=== PATIENT | male | born 1965 | race Caucasian/White ===

== ENCOUNTER 2017-12-16 13:38 | Day surgery (SDC) | payer BC, OTHER ==
[2017-12-13 17:46] VITALS: BMI 31.6
[2017-12-16 14:05] VITALS: TEMP 98.3
[2017-12-16] MEDS ORDERED: MIDAZOLAM HCL 2 MG/2 ML SINGLE DOSE VIAL ONE ×3 (17:09→17:26)
[2017-12-16] MEDS ORDERED: DEXAMETHASONE SOD PHOSPHATE 4 MG/1 ML VIAL ONE (17:39)
--- NOTE | 2017-12-16 17:54 | OP ---
Operative Note - Note: Operative Date: 12/16/17 Pre-Operative Diagnosis: Left renal stone Operation: Lefdr renal ESWL Findings: 7 mm Left kidney lower pole stone Post-Operative Diagnosis: Same as Pre-op Surgeon: Kevin Kline Anesthesia: Fractional Estimated Blood Loss (mls): 0
[2017-12-16 19:21] VITALS: BP 130/80; PULSE 58
--- NOTE | 2017-12-16 22:23 | OP ---
DATE OF OPERATION: 12/16/2017 PREOPERATIVE DIAGNOSIS: Left renal stone. POSTOPERATIVE DIAGNOSIS: Left renal stone. PROCEDURE: Left extracorporeal shock wave lithotripsy. ATTENDING: Lilli Walker MD ANESTHESIA: Fractional. DESCRIPTION OF OPERATION: The patient was brought in the operating room and placed in supine position on the operating room table. Ultrasonography and fluoroscopy were performed. A 7-mm left lower pole stone was identified. Anesthesia and preoperative antibiotics were then administered. Shock wave lithotripsy was performed; 2500 impulses at 17 joules of power were administered to the stone with excellent fragmentation noted under real-time ultrasonography and fluoroscopy. There were no complications noted. The patient tolerated the procedure very well. LILLI WALKER M.D. [id number]
== END 2017-12-16 18:00 | disposition home or self-care (01) ==
LOC: JASU-SURG 13:38
PROVIDERS: ATTEND Urology
PROC: 0TF4XZZ Fragmentation in Left Kidney Pelvis, External Approach (ICD-10-PCS; principal; 2017-12-16 16:15)
DX: N20.0 Calculus of kidney (principal)

== ENCOUNTER 2018-01-27 07:47 | Day surgery (SDC) | payer BC, OTHER ==
[2018-01-24 09:18] VITALS: BMI 31.6
[2018-01-27] MEDS ORDERED: PROPOFOL 20 ML ONE (09:52)
[2018-01-27] MEDS ORDERED: MIDAZOLAM HCL 2 MG/2 ML SINGLE DOSE VIAL ONE (09:53)
[2018-01-27] MEDS ORDERED: LIDOCAINE HCL/PF 2% SDV 5ML VIAL ONE (09:54)
[2018-01-27] MEDS ORDERED: KETOROLAC TROMETHAMINE 30 MG/1 ML VIAL ONE (10:38)
--- NOTE | 2018-01-27 10:45 | OP ---
Operative Note - Note: Operative Date: 01/27/18 Pre-Operative Diagnosis: Right Kidney stone Operation: Right ESWL Findings: 4 mm mid & 4 mm lower pole Right renal stone Post-Operative Diagnosis: Same as Pre-op Anesthesia: Fractional Estimated Blood Loss (mls): 0
[2018-01-27 12:53] VITALS: BP 119/50; PULSE 65; TEMP 97.2
--- NOTE | 2018-01-27 20:43 | OP ---
DATE OF OPERATION: 01/27/2018 PREOPERATIVE DIAGNOSIS: Right renal stone. POSTOPERATIVE DIAGNOSIS: Right renal stone. PROCEDURE: Right extracorporeal shockwave lithotripsy. ATTENDING: Lilli Kline M.D. ANESTHESIA: Fractional. DESCRIPTION OF PROCEDURE: Patient was brought in the operating room, placed in a supine position on the operating room table. Ultrasonography and fluoroscopy were performed. Two stones each measuring 4 mm were noted in the right mid and right lower poles. Anesthesia was then administered as well as preoperative antibiotics. 1500 impulses at 18 joules of power were administered to each stone. Excellent fragmentation was noted. No complications were noted. DISPOSITION: To recovery room. LILLI WALKER M.D. [id number]
== END 2018-01-27 12:25 | disposition home or self-care (01) ==
LOC: JASU-SURG 07:47
PROVIDERS: ATTEND Urology
PROC: 0TF3XZZ Fragmentation in Right Kidney Pelvis, External Approach (ICD-10-PCS; principal; 2018-01-27 09:30)
DX: N20.0 Calculus of kidney (principal)

== ENCOUNTER 2019-11-16 05:14 | Day surgery (SDC) | payer BC, OTHER ==
[2019-11-12 10:22] VITALS: BMI 28.3
[2019-11-16] MEDS ORDERED: MIDAZOLAM HCL 2 MG/2 ML SINGLE DOSE VIAL ONE (09:59)
--- NOTE | 2019-11-16 11:10 | OP ---
Operative Note - Note: Operative Date: 11/16/19 Pre-Operative Diagnosis: Left renal stone Operation: ESWL Findings: 6 mm lower pole left renal stone Post-Operative Diagnosis: Same as Pre-op Surgeon: Kevin Kline Anesthesia: Regional Estimated Blood Loss (mls): 0 Operative Report Dictated: Yes
[2019-11-16 12:29] VITALS: BP 131/76; PULSE 65; TEMP 97.5
--- NOTE | 2019-11-16 20:33 | OP ---
DATE OF OPERATION: 11/16/2019 PREOPERATIVE DIAGNOSIS: Left renal stone. POSTOPERATIVE DIAGNOSIS: Left renal stone. PROCEDURE: Left extracorporeal shockwave lithotripsy. ATTENDING: Lilli Kline M.D. ANESTHESIA: Fractional. DESCRIPTION OF PROCEDURE: Patient was brought in the operating room, placed in a supine position on the operating room table. Ultrasonography and fluoroscopy were performed. A 6-mm left lower pole stone was identified. Anesthesia and preoperative antibiotics were then administered. The shockwave lithotripsy was then started. 2500 impulses at 17 joules of power were administered to the stone with excellent fragmentation of the stone noted under realtime ultrasonography and fluoroscopy. The patient tolerated the procedure very well. DISPOSITION: Patient to recovery room. LILLI WALKER M.D. [id number]
== END 2019-11-16 12:39 | disposition home or self-care (01) ==
LOC: JASU-SURG 05:14
PROVIDERS: ATTEND Urology
PROC: 0TF4XZZ Fragmentation in Left Kidney Pelvis, External Approach (ICD-10-PCS; principal; 2019-11-16 10:00)
DX: N20.0 Calculus of kidney (principal)

== ENCOUNTER 2023-09-02 08:41 | Emergency (ER) | payer BC ==
[2023-09-02 08:48] VITALS: BP 123/85; PULSE 82; RESP 18; TEMP 98.8; BMI 30.7
[2023-09-02] MEDS ORDERED: ACETAMINOPHEN INJECTION 100 ML IVPB ONE (10:11)
[2023-09-02] MEDS: SODIUM CHLORIDE 0.9% 500 ML INFUS.BAG IV ONE (10:23)
[2023-09-02] MEDS: ACETAMINOPHEN 1000 MG/100 ML BAG IVPB ONE (10:29)
[2023-09-02 10:38] LABS: BASO % 0.3 % (0-2.0); EOS % 0.2 % (0-4.5); HEMATOCRIT 43.7 % (35.4-49); HEMOGLOBIN 14.7 GM/dL (11.7-16.9); LYMPH % 18.2 % (8-40); MCH 28.4 pg (25.7-33.7); MCHC 33.5 g/dl (32.0-35.9); MEAN CELL VOLUME 84.7 fl (80-96); MEAN PLT VOLUME 9.2 fl (7.5-11.1); MONO % 10.6 % (3.8-10.2); NEUT % 70.7 % (42.8-82.8); PLATELET COUNT 221 10^3/uL (134-434); RBC 5.16 M/mm3 (4.00-5.60); WHITE BLOOD COUNT 13.5 K/mm3 (4.0-10.0)
[2023-09-02 10:42] LABS: INR 1.12 (0.83-1.09); PROTHROMBIN TIME (PATIENT) 12.8 SEC (9.7-13.0)
[2023-09-02 10:45] LABS: ACTIVATED PTT 32.8 SECONDS (25.2-36.5)
[2023-09-02 10:57] LABS: POTASSIUM 4.5 mmol/L (3.5-5.1)
[2023-09-02 11:01] LABS: ALBUMIN 3.4 g/dl (3.4-5.0); CALCIUM 9.2 mg/dL (8.5-10.1)
[2023-09-02 11:02] LABS: BLOOD UREA NITROGEN 12.9 mg/dL (7-18)
[2023-09-02 11:04] LABS: CREATININE 0.8 mg/dL (0.55-1.3)
[2023-09-02 11:06] LABS: BILIRUBIN,TOTAL 0.6 mg/dL (0.2-1); TOT PROT 7.2 g/dl (6.4-8.2)
[2023-09-02] MEDS: FUROSEMIDE 40 MG/4 ML INJECTABLE VIAL IVPUSH ONE (11:21)
[2023-09-02 12:58] LABS: URINE APPEARANCE CLEAR; URINE BILIRUBIN NEGATIVE (NEGATIVE); URINE COLOR YELLOW; URINE GLUCOSE (UA) NEGATIVE (NEGATIVE); URINE KETONE NEGATIVE (NEGATIVE)
[2023-09-02 12:59] LABS: EPI CELLS 36.3 /uL (0-25.1); HYALINE CASTS 2.19 /uL (0-3.1); PH,URINE 5.5 (5.0-8.0); URINE BACTERIA 29.4 /uL (0-1359); URINE LEUK ESTERASE NEGATIVE (NEGATIVE); URINE NITRITE NEGATIVE (NEGATIVE); URINE PROTEIN TRACE (NEGATIVE); URINE RBC 2158.9 /uL (0-23.9); URINE UROBILINOGEN 0.2 mg/dL (0.2-1.0)
[2023-09-02] MEDS ORDERED: CEFTRIAXONE 1 GM/50 ML BAG ONE (13:37)
[2023-09-02] MEDS: CEFTRIAXONE 1,000 MG in DEXTROSE 5%-WATER - 50 ML IVPB ONE (13:40)
== END 2023-09-02 16:50 | disposition home or self-care (01) ==
LOC: JER 08:41
PROC: 3E03329 Introduction of Other Anti-infective into Peripheral Vein, Percutaneous Approach (ICD-10-PCS; principal; 2023-09-02)
PROC: 3E033NZ Introduction of Analgesics, Hypnotics, Sedatives into Peripheral Vein, Percutaneous Approach (ICD-10-PCS; 2023-09-02)
DX: N39.0 Urinary tract infection, site not specified (principal); R34 Anuria and oliguria; R39.198 Other difficulties with micturition; R10.84 Generalized abdominal pain; R11.2 Nausea with vomiting, unspecified; R50.9 Fever, unspecified; K59.00 Constipation, unspecified; Z20.822 Contact with and (suspected) exposure to COVID-19
CPT/HCPCS: 0241U-QW; 36415; 71045-TC-FY; 74177-TC; 80053; 81003; 83690; 84484; 85025; 85610; 85730; 86850; 86900; 86901; 87086; 93005; 93010; 99285-25; J0131; Q9967